=== PATIENT | female | born 1975 | race African-American/Black ===

== ENCOUNTER 2016-10-26 12:54 | Emergency (ER) | payer OTHER ==
[~2016-10-26] VITALS: Ht 152.4 cm; Wt 52.0 kg
[~2016-10-26 12:54] MED LIST: BACT800T5 PO; OMEP40CA2 PO; PROT40TA PO
[2016-10-26 12:58] VITALS: BP 125/84; PULSE 86; RESP 16; TEMP 98.4; O2SAT 98
[2016-10-26 13:18] LABS: MEAN CORPUSCULAR HGB CONC 36.3 % (32.0-36.0)
--- NOTE | 2016-10-26 13:41 | RADRPT ---
EXAM DATE/TIME: 10/26/2016 13:16 [facility] COMPARISON: CHEST SINGLE AP, November 14, 2015, 23:51. INDICATIONS : Chest pain MEDICAL HISTORY : None. SURGICAL HISTORY : None. ENCOUNTER: Initial ACUITY: 3 days PAIN SCORE: 10/10 LOCATION: Bilateral chest FINDINGS: A single view of the chest demonstrates the lungs to be symmetrically aerated without evidence of mas s, infiltrate or effusion. The cardiomediastinal contours are unremarkable. Osseous structures are intact. CONCLUSION: No acute disease. Delta Bloom MD on October 26, 2016 at 13:39 Board Certified Radiologist. This report was verified electronically.
[2016-10-26 13:51] LABS: AUTOMATED NEUTROPHIL # 5.2 TH/MM3 (1.8-7.7); BASOPHIL % 0.5 % (0.0-2.0); EOSINOPHIL # 0.1 TH/MM3 (0-0.4); EOSINOPHIL % 0.8 % (0.0-4.0); HEMATOCRIT 29.1 % (35.0-46.0); LYMPH % 34.8 % (9.0-44.0); LYMPHOCYTE # 3.1 TH/MM3 (1.0-4.8); MEAN CELL VOLUME 76.6 FL (80.0-100.0); MEAN CORPUSCULAR HEMOGLOBIN 27.8 PG (27.0-34.0); MONO % 5.5 % (0.0-8.0); NEUT % 58.4 % (16.0-70.0); PLATELET COUNT 409 TH/MM3 (150-450); RED CELL DISTRIBUTION WIDTH 17.9 % (11.6-17.2); WHITE BLOOD COUNT 8.8 TH/MM3 (4.0-11.0)
[2016-10-26 13:53] LABS: HEMO FLAGS AUTO DIFF
[2016-10-26 14:05] LABS: ANION GAP 8 MEQ/L (5-15); BICARBONATE 27.5 MEQ/L (21.0-32.0); BLOOD UREA NITROGEN 5 MG/DL (7-18); CHLORIDE 104 MEQ/L (98-107); GLOMERULAR FILTRATION RATE 98 ML/MIN (>89); SODIUM (NA) 139 MEQ/L (136-145)
[2016-10-26 14:12] LABS: CREATINE KINASE 58 U/L (26-192)
[2016-10-26 14:26] LABS: SCAN/DIFF AUTO DIFF CONFIRMED; TARGET CELLS 1+ (NORMAL)
[2016-10-26] MEDS ORDERED: KETOROLAC TROMETHAMINE 60 MG/2 ML (IM) VIAL IM ONE (16:45)
[2016-10-26] MEDS ORDERED: ORPHENADRINE INJ 60 MG/2 ML AMP IM ONE (16:45)
--- NOTE | 2016-10-26 17:16 | PD ---
HPI Chief Complaint: Chest Pain Time Seen by Provider: 17:16 Travel History International Travel<30 days: No Contact w/Intl Traveler<30days: No Traveled to known affect area: No History of Present Illness HPI 41-year-old female presents to the emergency department for evaluation of her right sided neck pain, exacerbated with movement, for the last 3 days. States she has also had a left substernal chest pain for 3 days. Patient states it does not radiate anywhere. She has had no nausea or vomiting. No recent illnesses, fever, chills. No cardiac history. She has no other symptoms to report at this time. [facility] Past Medical History Medical History: Denies Significant Hx Diminished Hearing: No GERD: Yes Immunizations Current: Yes Pancreatitis: Yes Ulcer: Yes (DUODENAL) : 2 Para: 2 Tubal Ligation: Yes Past Surgical History Cholecystectomy: Yes Gynecologic Surgery: Yes (TUBAL) Other Surgery: Yes (ORAL SX.) Social History Alcohol Use: Yes (OCC.) Tobacco Use: Yes (1/2 PPD) Substance Use: Yes (marijuana) Allergies-Medications (Allergen,Severity, Reaction): Coded Allergies: No Known Allergies (Unverified , 10/19/16) Reported Meds & Prescriptions Reported Meds & Active Scripts Active Robaxin (Methocarbamol) 500 Mg Tab 500 Mg PO QID PRN Ibuprofen 600 Mg Tab 600 Mg PO Q8HR PRN Bactrim DS (Sulfamethoxazole-Trimethoprim) 800-160 Mg Tab 1 Tab PO BID 5 Days Reported Protonix (Pantoprazole Sodium) 40 Mg Tab 40 Mg PO DAILY Omeprazole 40 Mg Cap 40 Mg PO DAILY Review of Systems Except as stated in HPI: all other systems reviewed are Neg Physical Exam Narrative GENERAL: Well-nourished female patient, ambulatory no acute distress SKIN: Warm and dry. HEAD: Atraumatic. Normocephalic. EYES: Pupils equal and round. No scleral icterus. No injection or drainage. ENT: No nasal bleeding or discharge. Mucous membranes pink and moist. NECK: Trachea midline. No JVD. Tenderness elicited palpation along the right trapezius musculature. CARDIOVASCULAR: Regular rate and rhythm. No murmur appreciated. RESPIRATORY: No accessory muscle use. Clear to auscultation. Breath sounds equal bilaterally. GASTROINTESTINAL: Abdomen soft, non-tender, nondistended. Hepatic and splenic margins not palpable. MUSCULOSKELETAL: No obvious deformities. No clubbing. No cyanosis. No edema. NEUROLOGICAL: Awake and alert. No obvious cranial nerve deficits. Motor grossly within normal limits. Normal speech. PSYCHIATRIC: Appropriate mood and affect; insight and judgment normal. Data Data Last Documented VS Vital Signs Date Time Temp Pulse Resp B/P Pulse Ox O2 Delivery O2 Flow Rate FiO2 10/26/16 12:58 98.4 86 16 125/84 98 Orders Electrocardiogram (10/26/16 13:16) Complete Blood Count With Diff (10/26/16 13:16) Basic Metabolic Panel (Bmp) (10/26/16 13:16) Ckmb (Isoenzyme) Profile (10/26/16 13:16) Troponin I (10/26/16 13:16) Chest, Single Ap (10/26/16 13:16) Iv Access Insert/Monitor (10/26/16 13:16) Ecg Monitoring (10/26/16 13:16) Oxygen Administration (10/26/16 13:16) Oximetry (10/26/16 13:16) Electrocardiogram (10/26/16 ) Troponin I (10/26/16 16:35) Ketorolac Inj (Toradol Inj) (10/26/16 16:45) Orphenadrine Inj (Norflex Inj) (10/26/16 16:45) Potassium Chloride (Kcl) (10/26/16 17:30) Labs Laboratory Tests Test 10/26/16 10/26/16 13:35 16:50 White Blood Count 8.8 TH/MM3 Red Blood Count 3.80 MIL/MM3 Hemoglobin 10.6 GM/DL Hematocrit 29.1 % Mean Corpuscular Volume 76.6 FL Mean Corpuscular Hemoglobin 27.8 PG Mean Corpuscular Hemoglobin 36.3 % Concent Red Cell Distribution Width 17.9 % Platelet Count 409 TH/MM3 Mean Platelet Volume 7.4 FL Neutrophils (%) (Auto) 58.4 % Lymphocytes (%) (Auto) 34.8 % Monocytes (%) (Auto) 5.5 % Eosinophils (%) (Auto) 0.8 % Basophils (%) (Auto) 0.5 % Neutrophils # (Auto) 5.2 TH/MM3 Lymphocytes # (Auto) 3.1 TH/MM3 Monocytes # (Auto) 0.5 TH/MM3 Eosinophils # (Auto) 0.1 TH/MM3 Basophils # (Auto) 0.0 TH/MM3 CBC Comment AUTO DIFF Differential Comment AUTO DIFF CONFIRMED Target Cells 1+ Sodium Level 139 MEQ/L Potassium Level 3.0 MEQ/L Chloride Level 104 MEQ/L Carbon Dioxide Level 27.5 MEQ/L Anion Gap 8 MEQ/L Blood Urea Nitrogen 5 MG/DL Creatinine 0.79 MG/DL Estimat Glomerular Filtration 98 ML/MIN Rate Random Glucose 86 MG/DL Calcium Level 9.0 MG/DL Total Creatine Kinase 58 U/L Troponin I LESS THAN 0.02 LESS THAN 0.02 NG/ML NG/ML MDM Medical Decision Making Medical Screen Exam Complete: Yes Emergency Medical Condition: Yes Medical Record Reviewed: Yes Differential Diagnosis Muscle strain versus spasm versus discogenic pain Costochondritis versus chest wall pain versus less likely ACS Narrative Course 41-year-old female presents to the emergency department for evaluation. Patient appears without distress. Workup is initiated by nursing staff for protocol. Protocol labs have resulted without any acute concern. Patient is with anemia hemoglobin 10.9. EKG is without ST elevation or depression. It is normal sinus rhythm. It has been signed and reviewed by an ED physician. Troponin is less than 0.02. Patient is hypokalemic at 3.0. This is repleted in the emergency department. Repeat troponin is less than 0.02. Repeat EKG is similar to the first EKG. I have discussed the patient with Dr. Loyola who agrees the patient can be discharged at this time. She is provided additional pain control and agrees to return immediately with any acute worsening of symptoms. Diagnosis Primary Impression: Strain of right trapezius muscle Qualified Code: S46.811A - Strain of right trapezius muscle, initial encounter Additional Impression: Chest wall pain Referrals: Primary Care Physician Patient Instructions: General Instructions, Muscle Strain (ED) Departure Forms: Tests/Procedures, Work Release Enter return to work date: Oct 30, 2016 Additional Instructions: Ice and/or warm moist heat may help to alleviate symptoms Follow-up the primary care provider Return immediately to the emergency department with any acute worsening of symptoms Med/Other Pt SpecificInfo: Prescription(s) given Scripts Methocarbamol (Robaxin)500 Mg [id number] Mg PO QID PRN (MUSCLE SPASM) #30 TAB Ref 0 Prov:Betsy Dorsey 10/26/16 Ibuprofen 600 Mg Flu448 Mg PO Q8HR PRN (PAIN) #30 TAB Ref 0 Prov:Betsy Dorsey 10/26/16 Disposition: 01 DISCHARGE HOME Condition: Stable Betsy Dorsey Oct 26, 2016 17:16
[2016-10-26] MEDS ORDERED: POTASSIUM CHLORIDE 10 MEQ CONTROLLED RELEASE TAB PO ONE (17:30)
[2016-10-26] MEDS ORDERED: ROBA500T PO (17:56)
[2016-10-26] MEDS ORDERED: IBUP-232 PO (17:56)
--- NOTE | 2016-10-27 16:58 | EKG ---
Date Performed: 10/26/2016 Time Performed: 13:30:18 PTAGE: 41 years EKG: Sinus rhythm WITH SHORT MI INTERVAL NORMAL ECG PREVIOUS TRACING : 11/15/2015 01.21 Compared to previous tracing, the long QST interval has res olved DOCTOR: Patricia Cheung Interpretating Date/Time 10/27/2016 16:58:28
--- NOTE | 2016-10-27 17:01 | EKG ---
Date Performed: 10/26/2016 Time Performed: 17:27:46 PTAGE: 41 years EKG: NORMAL Sinus rhythm WITH SHORT NH INTERVAL NONSPECIFIC ST-T-WAVE CHANGES BORDERLINE ECG PREVIOUS TRACING : 10/26/2016 13.30 Since previous tracing, no significant change noted DOCTOR: Patricia Cheung Interpretating Date/Time 10/27/2016 16:59:02
== END 2016-10-26 18:19 | disposition home or self-care (01) ==
LOC: NETRI 12:54
DX: S46.811A Strain of other muscles, fascia and tendons at shoulder and upper arm level, right arm, initial encounter (principal); R07.89 Other chest pain; F17.210 Nicotine dependence, cigarettes, uncomplicated; R94.31 Abnormal electrocardiogram [ECG] [EKG]
CPT/HCPCS: 71010; 80048; 82550; 84484; 85025; 93005; 96372; 99285; J1885; J2360

== ENCOUNTER 2018-01-06 18:21 | Observation (INO) | payer OTHER ==
[~2018-01-06] VITALS: Ht 154.9 cm; Wt 52.0 kg
[~2018-01-06 18:21] MED LIST changes: +IBUP-232 PO; +ROBA500T PO
[2018-01-06 18:46] VITALS: BP 120/74; PULSE 91; RESP 18; TEMP 98.7; O2SAT 99
[2018-01-06] MEDS ORDERED: SODIUM CHLOR 0.9% 1000 ML INJ 1,000 ML IV ONE (19:45)
[2018-01-06] MEDS ORDERED: ONDANSETRON HCL 4 MG/2 ML VIAL IV ONE (19:45)
[2018-01-06 19:55] VITALS: BP 128/81; PULSE 77; RESP 15; O2SAT 98
--- NOTE | 2018-01-06 19:55 | PD ---
HPI Chief Complaint: GI Complaint Time Seen by Provider: 19:31 Travel History International Travel<30 days: No Contact w/Intl Traveler<30days: No Traveled to known affect area: No History of Present Illness HPI The patient is a 42 year old female who presents to the [facility] emergency department with a history of developing nausea and vomiting around 2 AM yesterday. She reports that in the evening the vomiting resolved, however she continues to be nauseated. She reports that she has had diarrhea, however she is on her menstrual cycle and that is not unusual for her. She reports that she had 3-4 episodes of diarrhea yesterday, 2-3 episodes of diarrhea today. She denies having any blood in her stool or black or tarry stools. She denies having any mucus in her stool. She denies having any urinary symptoms. She reports that her last menstrual cycle began on January 02. She denies having any fevers or chills. She reports that she does have some left chest wall pain. She reports that in the upper chest near the axilla on the left side she developed an abscess that drained. She reports that she used [id number] ointment on it and warm compresses which allowed it to drain and then resolved. She reports that she continues to have some tenderness at the site, however no increased swelling or drainage. She denies having any recent worsening cough or congestion. On review of systems otherwise, she denies having any lumps in her axilla, breast nodules, nipple discharge, neck pain, shortness of breath, abdominal pain, or neurologic symptoms. The patient reports that she does have a family history of breast cancer in her mother. She denies ever having a mammogram. Her primary care physician is Dr. Pak. The patient reports that she had vomiting too many times to count. The patient reports that she last had a sip of alcohol on . She reports that she drank 1 glass of wine. [facility] Past Medical History Narrative Medical The patient's past medical history is reportedly significant for peptic ulcer disease, history of pancreatitis thought to be related to her gallbladder which has been resected. Diminished Hearing: No GERD: Yes Immunizations Current: Yes Pancreatitis: Yes Ulcer: Yes (DUODENAL) ?: Not : 2 Para: 2 Tubal Ligation: Yes Past Surgical History Narrative Surgical The patient's past surgical history is significant for cholecystectomy, bilateral tubal ligation, cleft palate repair Cholecystectomy: Yes Gynecologic Surgery: Yes (TUBAL) Other Surgery: Yes (ORAL SX.) Social History Alcohol Use: Yes (OCC.) Tobacco Use: Yes (/2 PPD) Substance Use: Yes (marijuana) Allergies-Medications (Allergen,Severity, Reaction): Coded Allergies: No Known Allergies (Unverified Allergy, Unknown, 01/06/18) Reported Meds & Prescriptions Reported Meds & Active Scripts Active Robaxin (Methocarbamol) 500 Mg Tab 500 Mg PO QID PRN Ibuprofen 600 Mg Tab 600 Mg PO Q8HR PRN Bactrim DS (Sulfamethoxazole-Trimethoprim) 800-160 Mg Tab 1 Tab PO BID 5 Days Reported Protonix (Pantoprazole Sodium) 40 Mg Tab 40 Mg PO DAILY Omeprazole 40 Mg Cap 40 Mg PO DAILY Narrative Medication The patient reports that the only medication that she is currently on is omeprazole. Review of Systems Except as stated in HPI: all other systems reviewed are Neg General / Constitutional: No: Fever Eyes: No: Visual changes HENT: No: Headaches, Congestion Cardiovascular: Positive: Chest Pain or Discomfort (Left upper chest near her axilla) Respiratory: No: Cough, Shortness of Breath Gastrointestinal: Positive: Nausea, Vomiting, Diarrhea, Abdominal Pain, Changes in Bowel Habits, Indigestion, No: Hematemesis, Hematochezia, Constipation, Loss of Appetite Genitourinary: No: Dysuria Musculoskeletal: No: Pain Skin: No Rash Neurologic: No: Weakness, Focal Abnormalities, Change in Mentation, Slurred Speech, Sensory Disturbance Psychiatric: No: Depression Endocrine: No: Polydipsia Hematologic/Lymphatic: No: Easy Bruising Physical Exam Narrative General: The patient is a well-developed well-nourished female in no acute distress. Head and Neck exam: Head is normocephalic atraumatic. Eyes: EOMI, pupils are equal round and reactive to light. Nose: Midline septum with pink mucous membranes Mouth: Dentition unremarkable. Moist mucus membranes. Posterior oropharynx is not erythematous. No tonsillar hypertrophy. Uvula midline. Airway patent. Neck: No palpable lymphadenopathy. No nuchal rigidity. No thyromegaly. Cardiovascular: Regular rate and rhythm without murmurs, gallops, or rubs. No pulse deficit to the extremities on simultaneous auscultation and palpation of her radial artery. Breast exam: No breast nodules or masses are palpated. The patient has no axillary lymphadenopathy. No skin changes noted, except in the area of interest , the left side of her chest wall above the breast near the axilla. There is a linear area of scar which she reports is slightly tender to palpation. There is no underlying fluctuance, erythema, or warmth on palpation. Lungs: Clear to auscultation bilaterally. No wheezes, rhonchi, or rales. Abdomen: Soft, without tenderness to palpation in all 4 quadrants of the abdomen, however some discomfort on palpation of the midepigastric area. No guarding, rebound, or rigidity. Normal bowel sounds are audible. No tenderness on palpation of McBurney's point. Negative Adam sign Extremities: No clubbing, cyanosis, or edema. 2+ pulses in all 4 extremities. No calf tenderness on palpation. Back: No costovertebral angle tenderness to palpation. Neurologic Exam: Grossly nonfocal. Skin Exam: No rash noted. Intact skin that is warm and dry. Data Data Last Documented VS Vital Signs Date Time Temp Pulse Resp B/P (MAP) Pulse Ox O2 Delivery O2 Flow Rate FiO2 01/06/18 19:55 77 15 128/81 (97) 98 01/06/18 18:46 98.7 Orders Orders Complete Blood Count With Diff (01/06/18 19:36) Comprehensive Metabolic Panel (01/06/18 19:36) Prothrombin Time / Inr (Pt) (01/06/18 19:36) Act Partial Throm Time (Ptt) (01/06/18 19:36) C-Reactive Protein (Crp) (01/06/18 19:36) Lipase (01/06/18 19:36) Urinalysis - C+S If Indicated (01/06/18 19:36) Magnesium (Mg) (01/06/18 19:36) Chest, Single Ap (01/06/18 19:36) Iv Access Insert/Monitor (01/06/18 19:36) Ecg Monitoring (01/06/18 19:36) Oximetry (01/06/18 19:36) Ed Urine Pregnancytest Poc (01/06/18 19:36) Ondansetron Inj (Zofran Inj) (01/06/18 19:45) Sodium Chlor 0.9% 1000 Ml Inj (Ns 1000 M (01/06/18 19:45) Admit Order (Ed Use Only) (01/06/18 20:48) Labs Laboratory Tests Test 01/06/18 20:00 White Blood Count 6.2 TH/MM3 Red Blood Count 4.30 MIL/MM3 Hemoglobin 12.4 GM/DL Hematocrit 34.3 % Mean Corpuscular Volume 79.6 FL Mean Corpuscular Hemoglobin 28.9 PG Mean Corpuscular Hemoglobin Concent 36.2 % Red Cell Distribution Width 16.2 % Platelet Count 235 TH/MM3 Mean Platelet Volume 7.0 FL Neutrophils (%) (Auto) 55.3 % Lymphocytes (%) (Auto) 37.6 % Monocytes (%) (Auto) 5.1 % Eosinophils (%) (Auto) 1.4 % Basophils (%) (Auto) 0.6 % Neutrophils # (Auto) 3.4 TH/MM3 Lymphocytes # (Auto) 2.3 TH/MM3 Monocytes # (Auto) 0.3 TH/MM3 Eosinophils # (Auto) 0.1 TH/MM3 Basophils # (Auto) 0.0 TH/MM3 CBC Comment DIFF FINAL Differential Comment Prothrombin Time 11.0 SEC Prothromb Time International Ratio 1.1 RATIO Activated Partial Thromboplast Time 23.8 SEC Blood Urea Nitrogen 5 MG/DL Creatinine 0.69 MG/DL Random Glucose 78 MG/DL Total Protein 7.9 GM/DL Albumin 3.7 GM/DL Calcium Level 8.7 MG/DL Magnesium Level 2.1 MG/DL Alkaline Phosphatase 83 U/L Aspartate Amino Transf (AST/SGOT) 9 U/L Alanine Aminotransferase (ALT/SGPT) 13 U/L Total Bilirubin 0.8 MG/DL Sodium Level 139 MEQ/L Potassium Level 3.4 MEQ/L Chloride Level 104 MEQ/L Carbon Dioxide Level 27.9 MEQ/L Anion Gap 7 MEQ/L Estimat Glomerular Filtration Rate 114 ML/MIN C-Reactive Protein LESS THAN 0.29 MG/DL Lipase 686 U/L MDM Medical Decision Making Medical Screen Exam Complete: Yes Emergency Medical Condition: Yes Medical Record Reviewed: Yes Interpretation(s) Last Impressions Chest X-Ray 01/06/18 193 Signed Impressions: Service Date/Time: Saturday, January 06, 2018 19:47 - CONCLUSION: No acute disease. Ab Kimble MD Differential Diagnosis Viral syndrome, versus pancreatitis, versus acid reflux, versus gastroenteritis Regarding the patient's chest wall symptoms, the patient is noted to have a linear area of tenderness on palpation that she reports was previously noted to be an abscess that drained 2 months ago. Differential diagnosis for this includes breast cancer, versus scar tissue formation with keloid, versus soft tissue infection Narrative Course During the course of the patient's emergency department visit, the patient's history, examination, and differential diagnosis were reviewed with the patient. The patient was placed on a personnel monitor with oximetry and frequent blood pressure monitoring. The patient had IV access obtained and blood work sent for analysis. The patient was initially provided normal saline 1 L IV fluid bolus, Zofran 4 mg IV. The patient's laboratory studies were reviewed and remarkable for a white count of 6.2, hemoglobin 12.4, platelets 235 with a normal differential. A lipase that is elevated compared to previously at 686. Urine drug screen that is positive for cannabinoids. Radiology studies were reviewed and remarkable for a CXR that shows no acute abnormality. The patient will be admitted to the hospital for evaluation of an treatment of pancreatitis. The patient's results were discussed with the patient, including the plan of care. I explained that further testing and/ or monitoring is indicated based on the patient's history, examination, and/ or laboratory findings. Therefore, I recommended admission for additional evaluation. The patient expressed understanding and was agreeable with this plan. The patient was admitted to the hospital in stable condition and sent to a bed under the care of the [facility] residents. Physician Communication Physician Communication The patient's case including history, pertinent physical examination findings, and laboratory studies were discussed with the residents. it was agreed that the patient would be admitted to the [facility] teaching service. Diagnosis Primary Impression: Pancreatitis Qualified Codes: K85.90 - Acute pancreatitis without necrosis or infection, unspecified Admitting Information Admitting Physician Requests: Observation Referrals: Celsa Pak MD 2 days Additional Instructions: Follow-up with her primary care physician for consideration of a mammogram and ultrasound of the breast regarding the chest wall abnormality examined today given your family history of breast cancer, additional testing is warranted. Disposition: 01 DISCHARGE HOME Condition: Stable Stacy Claire MD Jan 06, 2018 19:55
[2018-01-06 20:10] LABS: AUTOMATED NEUTROPHIL # 3.4 TH/MM3 (1.8-7.7); BASOPHIL % 0.6 % (0.0-2.0); EOSINOPHIL # 0.1 TH/MM3 (0-0.4); EOSINOPHIL % 1.4 % (0.0-4.0); HEMATOCRIT 34.3 % (35.0-46.0); HEMOGLOBIN 12.4 GM/DL (11.6-15.3); LYMPH % 37.6 % (9.0-44.0); LYMPHOCYTE # 2.3 TH/MM3 (1.0-4.8); MEAN CELL VOLUME 79.6 FL (80.0-100.0); MEAN CORPUSCULAR HEMOGLOBIN 28.9 PG (27.0-34.0); MONO % 5.1 % (0.0-8.0); MONOCYTE # 0.3 TH/MM3 (0-0.9); NEUT % 55.3 % (16.0-70.0); PLATELET COUNT 235 TH/MM3 (150-450); RED CELL DISTRIBUTION WIDTH 16.2 % (11.6-17.2); WHITE BLOOD COUNT 6.2 TH/MM3 (4.0-11.0)
[2018-01-06 20:13] LABS: MEAN CORPUSCULAR HGB CONC 36.2 % (32.0-36.0)
--- NOTE | 2018-01-06 20:16 | RADRPT ---
EXAM DATE/TIME: 01/06/2018 19:47 [facility] COMPARISON: CHEST SINGLE AP, October 26, 2016, 13:16. INDICATIONS : Nausea and vomiting today and history of a boil several months ago on left anterior chest. MEDICAL HISTORY : None. SURGICAL HISTORY : None. ENCOUNTER: Initial ACUITY: 1 day PAIN SCORE: 0/10 LOCATION: Bilateral chest FINDINGS: A single view of the chest demonstrates the lungs to be symmetrically aerated without evidence of mas s, infiltrate or effusion. The cardiomediastinal contours are unremarkable. Osseous structures are intact. CONCLUSION: No acute disease. Ab Kimble MD on January 06, 2018 at 20:13 Board Certified Radiologist. This report was verified electronically.
[2018-01-06 20:22] LABS: ALBUMIN 3.7 GM/DL (3.4-5.0); ALT (GPT) 13 U/L (10-53); AST (GOT) 9 U/L (15-37); BICARBONATE 27.9 MEQ/L (21.0-32.0); BLOOD UREA NITROGEN 5 MG/DL (7-18); CALCIUM 8.7 MG/DL (8.5-10.1); CHLORIDE 104 MEQ/L (98-107); CREATININE 0.69 MG/DL (0.50-1.00); GLOMERULAR FILTRATION RATE 114 ML/MIN (>89); GLUCOSE,RANDOM 78 MG/DL (74-106); INTERNATIONAL NORMALIZED RATIO 1.1 RATIO; MAGNESIUM 2.1 MG/DL (1.5-2.5); SODIUM (NA) 139 MEQ/L (136-145)
[2018-01-06 20:24] LABS: ALKALINE PHOSPHATASE 83 U/L (45-117); C-REACTIVE PROTEIN LESS THAN 0.29 MG/DL (0.00-0.30); TOTAL BILIRUBIN ADULT 0.8 MG/DL (0.2-1.0); TOTAL PROTEIN 7.9 GM/DL (6.4-8.2)
--- NOTE | 2018-01-06 20:52 | HHI.HP ---
HPI Service Family Medicine Primary Care Physician Unknown Admission Diagnosis Pancreatitis Diagnoses: International Travel<30 Days: No Contact w/Intl Traveler<30days: No Known Affected Area: No History of Present Illness Patient is a 42-year-old Female with PMHx of duodenal ulcer disease presents to the ED with complains of nausea, vomiting and epigastric abdominal pain that started around 2am yesterday (01/05). Patient states that she vomited 5-6 times, emesis was yellow in color, NBNB. Epigastric abdominal pain is burning in nature with no radiation, rates 6/10 and stable. She stated the pain is similar to when she had her duodenal ulcer. Patient also reports having diarrhea 2-3 times yesterday morning, now resolved. Denies fever, SOB, chills, or CP. Patient denies taking any NSAIDs or pain medication for the abdominal pain. Vomiting and diarrhea has resolved. She has been able to tolerate liquids, gatorade and sprite but has not been able to eat much solid food. Patient reports good urine output, denies dysuria or increased frequency. Patient is on her menstrual cycle started 01/02, she also usually gets nausea with her cycle. Denies cramps. (Tracie Rodriguez MD, R1) Review of Systems Constitutional: COMPLAINS OF: Change in appetite, DENIES: Fever, Weight loss, Chills, Dizziness Eyes: DENIES: Eye pain, Vision loss Ears, nose, mouth, throat: COMPLAINS OF: Running Nose (chronic), DENIES: Throat pain Respiratory: DENIES: Cough, Wheezing, Shortness of breath Cardiovascular: DENIES: Chest pain, Palpitations, Syncope, Lower Extremity Edema Gastrointestinal: COMPLAINS OF: Abdominal pain, Diarrhea, Nausea, Vomiting, DENIES: Bloody stools Genitourinary: DENIES: Urinary frequency, Dysuria Musculoskeletal: COMPLAINS OF: Joint pain (chronic), Back pain (chronic), DENIES: Neck pain Integumentary: DENIES: Rash Hematologic/lymphatic: DENIES: Bruising Neurologic: COMPLAINS OF: Paresthesias, DENIES: Headache, Localized weakness ( chonic) Psychiatric: DENIES: Confusion (Tracie Rodriguez MD, R1) Past Family Social History Past Medical History duodenal ulcer, takes omeprazole daily Past Surgical History tubal ligation, 2000 Cholecystectomy, 2009 cleft palate repair, at age 3 Reported Medications Omeprazole 40 Mg Cap 40 Mg PO DAILY (Tracie Rodriguez MD, R1) Past Medical History Pancreatitis -- patient with h/o gallbladder polyps and recurrent pancreatitis thought to be secondary to this -- she has had no episodes of pancreatitis since her gallbladder was removed. (Veronika Sparks MD) Allergies: Coded Allergies: No Known Allergies (Unverified Allergy, Unknown, 01/06/18) Family History mother- CA breast grandmother- DM, CAD ulcer and GI issues run in family Social History lives with son in a apartment smokes- half pack a day for 25 yrs alcohol use- rarely Illicit drug: MJ every daily 5 blunts (Tracie Rodriguez MD, R1) Physical Exam Vital Signs Vital Signs Date Time Temp Pulse Resp B/P (MAP) Pulse Ox O2 Delivery O2 Flow Rate FiO2 01/06/18 19:55 77 15 128/81 (97) 98 01/06/18 19:38 16 01/06/18 18:46 98.7 91 18 120/74 (89) 99 Physical Exam GENERAL: This is a well-nourished, well-developed patient, in no apparent distress. SKIN: No rashes, ecchymoses or lesions. Cool and dry. HEAD: Atraumatic. Normocephalic. EYES: Pupils equal round and reactive. Extraocular motions intact. No scleral icterus. No injection or drainage. ENT: Nose without bleeding, purulent drainage or septal hematoma. Throat without erythema, tonsillar hypertrophy or exudate. Uvula midline. Airway patent. NECK: Trachea midline. No JVD or lymphadenopathy. Supple, nontender, no meningeal signs. CARDIOVASCULAR: Normal S1 and S2. Regular rate and rhythm without murmurs, gallops, or rubs. RESPIRATORY: Clear to auscultation. Breath sounds equal bilaterally. No wheezes , rales, or rhonchi. GASTROINTESTINAL: Abdomen soft, nondistended, mild tenderness to palpation in epigastric region, No hepato-splenomegaly, or palpable masses. No guarding. MUSCULOSKELETAL: Extremities without clubbing, cyanosis, or edema. No joint tenderness, effusion, or edema noted. No calf tenderness. +2 DP pulses BL. NEUROLOGICAL: Awake and alert. Cranial nerves II through XII intact. Motor and sensory grossly within normal limits. Five out of 5 muscle strength in all muscle groups. Normal speech. Laboratory Laboratory Tests Test 01/06/18 20:00 White Blood Count 6.2 Red Blood Count 4.30 Hemoglobin 12.4 Hematocrit 34.3 Mean Corpuscular Volume 79.6 Mean Corpuscular Hemoglobin 28.9 Mean Corpuscular Hemoglobin Concent 36.2 Red Cell Distribution Width 16.2 Platelet Count 235 Mean Platelet Volume 7.0 Neutrophils (%) (Auto) 55.3 Lymphocytes (%) (Auto) 37.6 Monocytes (%) (Auto) 5.1 Eosinophils (%) (Auto) 1.4 Basophils (%) (Auto) 0.6 Neutrophils # (Auto) 3.4 Lymphocytes # (Auto) 2.3 Monocytes # (Auto) 0.3 Eosinophils # (Auto) 0.1 Basophils # (Auto) 0.0 CBC Comment DIFF FINAL Differential Comment Prothrombin Time 11.0 Prothromb Time International Ratio 1.1 Activated Partial Thromboplast Time 23.8 Blood Urea Nitrogen 5 Creatinine 0.69 Random Glucose 78 Total Protein 7.9 Albumin 3.7 Calcium Level 8.7 Magnesium Level 2.1 Alkaline Phosphatase 83 Aspartate Amino Transf (AST/SGOT) 9 Alanine Aminotransferase (ALT/SGPT) 13 Total Bilirubin 0.8 Sodium Level 139 Potassium Level 3.4 Chloride Level 104 Carbon Dioxide Level 27.9 Anion Gap 7 Estimat Glomerular Filtration Rate 114 C-Reactive Protein LESS THAN 0.29 Lipase 686 (Tracie Rodriguez MD, R1) Result Diagram: 01/06/18199901/06/181999 Caprini VTE Risk Assessment Caprini VTE Risk Assessment: No/Low Risk (score <= 1) Caprini Risk Assessment Model Point Value = 1 Point Value = 2 Point Value = 3 Point Value = 5 Age 41-60 Minor surgery BMI > 25 kg/m2 Swollen legs Varicose veins or History of unexplained or recurrent spontaneous Oral contraceptives or hormone replacement Sepsis (< 1 month) Serious lung disease, including pneumonia (< 1 month) Abnormal pulmonary function Acute myocardial infarction Congestive heart failure (< 1 month) History of inflammatory bowel disease Medical patient at bed rest Age 61-74 Arthroscopic surgery Major open surgery (> 45 min) Laparoscopic surgery (> 45 min) Malignancy Confined to bed (> 72 hours) Immobilizing plaster cast Central venous access Age >= 75 History of VTE Family history of VTE Factor V Leiden Prothrombin [id number] Lupus anticoagulant Anticardiolipin antibodies Elevated serum homocysteine Heparin-induced thrombocytopenia Other congenital or acquired thrombophilia Stroke (< 1 month) Elective arthroplasty Hip, pelvis, or leg fracture Acute spinal cord injury (< 1 month) Prophylaxis Regimen Total Risk Factor Score Risk Level Prophylaxis Regimen 0-1 Low Early ambulation 2 Moderate Order ONE of the following: *Sequential Compression Device (SCD) *Heparin 5000 units SQ BID 3-4 Higher Order ONE of the following medications: *Heparin 5000 units SQ TID *Enoxaparin/Lovenox 40 mg SQ daily (WT < 150 kg, CrCl > 30 mL/min) *Enoxaparin/Lovenox 30 mg SQ daily (WT < 150 kg, CrCl > 10-29 mL/min) *Enoxaparin/Lovenox 30 mg SQ BID (WT < 150 kg, CrCl > 30 mL/min) AND/OR *Sequential Compression Device (SCD) 5 or more Highest Order ONE of the following medications: *Heparin 5000 units SQ TID (Preferred with Epidurals) *Enoxaparin/Lovenox 40 mg SQ daily (WT < 150 kg, CrCl > 30 mL/min) *Enoxaparin/Lovenox 30 mg SQ daily (WT < 150 kg, CrCl > 10-29 mL/min) *Enoxaparin/Lovenox 30 mg SQ BID (WT < 150 kg, CrCl > 30 mL/min) AND *Sequential Compression Device (SCD) (Tracie Rodriguez MD, R1) Assessment and Plan Assessment and Plan Patient is a 42-year-old Female with PMHx of duodenal ulcer disease presents to the ED with complains of nausea, vomiting and epigastric abdominal pain that started around 2am yesterday. Admitted for observation and hydration. Code Status full code Discussed Condition With SDW Dr. Manjarrez (Tracie Rodriguez MD, R1) Attending Attestation THIS CASE WAS DISCUSSED WITH THE RESIDENT PHYSICIAN. I HAVE REVIEWED THE RECORD AND AGREE WITH THE ABOVE NOTE AND PLAN OF CARE WAS DISCUSSED. I HAVE AUTHORIZED THE ORDER FOR PLACEMENT IN OUT-PATIENT OBSERVATION STATUS. (Veronika Sparks MD) Problem List: (1) Abdominal pain ICD Codes: R10.9 - Abdominal pain Status: Acute Plan: DDX: recurrent duodenum/peptic ulcer disease vs early pancreatitis vs GERD Vital signs stable, no leukocytosis mild tenderness in epigastric region H/H stable, mild hypokalemia at 3.4 otherwise electrolytes WNL lipase 686 IVF 100 mls/hr protonix 40mg IV Q24h tylenol for pain norco 5mg Q6h PRN for breakthrough pain zofran for N/V diet: clear liquid diet, advance as tolerated monitor po intake GI referral as outpatient f/u am labs, UA, repeat lipase, H. pylori stool study (2) Duodenal ulcer disease ICD Codes: K26.9 - Duodenal ulcer, unspecified as acute or chronic, without hemorrhage or perforation Status: Chronic Plan: Patient dx with duodenal ulcer disease 3 yrs ago home omeprazole held c/w Protonix 40mg IV QD (3) Nutrition, metabolism, and development symptoms ICD Codes: R63.8 - Other symptoms and signs concerning food and fluid intake Plan: Fluids: 100 mls/hr Electrolytes: mild hyposalemia, s/p 30mEq x1, , replete as needed, will f/u am labs Nutrition: clear liquid diet, advance as tolerated DVT ppx: SCDs (Tracie Rodriguez MD, R1) Tracie Rodriguez MD, R1 Jan 06, 2018 20:52 Veronika Sparks MD Jan 07, 2018 15:16
[2018-01-06] MEDS ORDERED: POTASSIUM CHLORIDE 10 MEQ CONTROLLED RELEASE TAB PO ONE (21:30)
[2018-01-06] MEDS ORDERED: SODIUM CHLORIDE 0.9% FLUSH 10 ML FLUSH IV FLUSH PRN (21:30)
[2018-01-06] MEDS ORDERED: ACETAMINOPHEN 325 MG TAB PO PRN (21:30)
[2018-01-06] MEDS ORDERED: PANTOPRAZOLE SODIUM 40 MG VIAL IV PUSH SCH (21:30)
[2018-01-06] MEDS ORDERED: NALOXONE HCL 0.4 MG/ML AMP IV PUSH PRN (21:30)
[2018-01-06] MEDS: SODIUM CHLOR 0.9% 1000 ML INJ 1,000 ML IV SCH (21:47)
[2018-01-07] MEDS: ACETAMINOPHEN/HYDROcodone 325 MG/5 MG TAB PO PRN ×2 (00:29→06:18)
[2018-01-07 06:39] LABS: BILIRUBIN, URINE NEG (NEG); BLOOD, URINE MOD (NEG); CALCIUM OXALATE CRYSTALS,URINE FEW /hpf; GLUCOSE,URINE NEG (NEG); KETONE, URINE NEG (NEG); MUCUS URINE FEW /lpf (OCC); NITRITE,URINE NEG (NEG); SQUAMOUS EPITHELIAL CELL URINE 1 /hpf (0-5); URINE COLOR YELLOW (YELLW/STRAW); URINE LEUKOCYTE ESTERASE SMALL (NEG)
[2018-01-07] MEDS: SODIUM CHLOR 0.9% 1000 ML INJ 1,000 ML IV SCH ×3 (07:24→23:16)
[2018-01-07 07:27] VITALS: BP 108/56; PULSE 55; RESP 16; TEMP 98.2; O2SAT 96
[2018-01-07] MEDS: SODIUM CHLORIDE 0.9% FLUSH 10 ML FLUSH IV FLUSH SCH ×2 (09:00→20:34)
[2018-01-07 10:49] VITALS: BP 113/63; PULSE 77; RESP 20; TEMP 98.4; O2SAT 97
[2018-01-07 11:47] LABS: AUTOMATED NEUTROPHIL # 1.9 TH/MM3 (1.8-7.7); BASOPHIL % 0.4 % (0.0-2.0); EOSINOPHIL % 1.2 % (0.0-4.0); HEMATOCRIT 28.2 % (35.0-46.0); LYMPH % 46.5 % (9.0-44.0); LYMPHOCYTE # 1.9 TH/MM3 (1.0-4.8); MEAN CELL VOLUME 80.6 FL (80.0-100.0); MEAN CORPUSCULAR HEMOGLOBIN 28.8 PG (27.0-34.0); MEAN CORPUSCULAR HGB CONC 35.7 % (32.0-36.0); MEAN PLATELET VOLUME 6.8 FL (7.0-11.0); MONO % 5.7 % (0.0-8.0); MONOCYTE # 0.2 TH/MM3 (0-0.9); NEUT % 46.2 % (16.0-70.0); PLATELET COUNT 175 TH/MM3 (150-450); RED BLOOD COUNT 3.49 MIL/MM3 (4.00-5.30); WHITE BLOOD COUNT 4.1 TH/MM3 (4.0-11.0)
[2018-01-07 12:14] LABS: BICARBONATE 25.6 MEQ/L (21.0-32.0); CALCIUM 7.5 MG/DL (8.5-10.1); CREATININE 0.59 MG/DL (0.50-1.00)
[2018-01-07] MEDS ORDERED: ACETAMINOPHEN/HYDROcodone 325 MG/7.5 MG TAB PO PRN (14:00)
--- NOTE | 2018-01-07 15:38 | HHI.FPPN ---
Addendum to progress note ADDENDUM Reason for addendum: Additonal documentation Additional information Please see the resident H&P for additional documentation of the patients history. 42 year old woman with h/o duodenal ulcer and also pancreatitis in the past with severe epigastric pain and elevated lipase. Was admitted for observation for hydration and monitoring. She reports at the visit today that her pain is not controlled, she states in the past she has required morphine for her pancreatitis pain. She has been tolerating clear liquids only at this time. She states no new concerns -- denies CP, SOB, urinary symptoms. On exam her vitals are stable, she is in NAD Vital Signs Date Time Temp Pulse Resp B/P (MAP) Pulse Ox O2 Delivery O2 Flow Rate FiO2 01/07/18 10:49 98.4 77 20 113/63 (80) 97 HEENT -- PERRL, OP clear, trachea midline, thyroid not enlarged, no cervical LAD CARDS _- rrr, no murmurs PULM - Clear bilaterally, moving air well, no crackles ABD -- S, ND, good bowel sounds, she is tender in the epigastric area, nontender in the LUQ, no rebound, no guarding EXT/MS -- MAEW, full ROM, good DP and PT pulses, no Edema in the Legs Skin - no rashes, no lesions - no suprapubic tenderness, no CVA T bilaterally 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 However -- this has resolved back to normal. Consider this may be due to other PUD. --- Continue IVF, PPI and adjust pain medications. H/H dropped since admission -- likely secondary to IVF and dilutional but with patient h/o duodenal ulcer would consider possible bleeding ulcer as well. Patient clinically not improved since yesterday so will continue to keep her for monitoring. Patient seen and dw the resident team -- Dr. Norman, Dr. Manjarrez, Dr. Arnold-Goodman Sparks,Veronika Jones MD Jan 07, 2018 15:38
[2018-01-07 15:40] VITALS: BP 124/72; PULSE 63; RESP 20; TEMP 98.3; O2SAT 98
[2018-01-07] MEDS: ONDANSETRON HCL 4 MG/2 ML VIAL IVP PRN (20:34)
[2018-01-07] MEDS ORDERED: PANTOPRAZOLE SOD 40 MG DELAYED RELEASE TAB PO SCH (21:00)
[2018-01-07 21:06] LABS: HEMATOCRIT 28.7 % (35.0-46.0); HEMOGLOBIN 10.2 GM/DL (11.6-15.3)
[2018-01-08] MEDS: ONDANSETRON HCL 4 MG/2 ML VIAL IVP PRN (01:46)
[2018-01-08] MEDS: ACETAMINOPHEN/HYDROcodone 325 MG/10 MG TAB PO PRN ×2 (02:34→10:19)
[2018-01-08 04:01] VITALS: BP 106/63; PULSE 78; RESP 18; TEMP 98.4; O2SAT 100
[2018-01-08 07:41] LABS: AUTOMATED NEUTROPHIL # 1.9 TH/MM3 (1.8-7.7); BASOPHIL % 0.3 % (0.0-2.0); EOSINOPHIL % 1.1 % (0.0-4.0); HEMATOCRIT 26.4 % (35.0-46.0); HEMOGLOBIN 9.5 GM/DL (11.6-15.3); LYMPH % 48.3 % (9.0-44.0); MEAN CELL VOLUME 80.1 FL (80.0-100.0); MEAN CORPUSCULAR HEMOGLOBIN 28.8 PG (27.0-34.0); MEAN CORPUSCULAR HGB CONC 35.9 % (32.0-36.0); MEAN PLATELET VOLUME 6.9 FL (7.0-11.0); MONO % 5.2 % (0.0-8.0); MONOCYTE # 0.2 TH/MM3 (0-0.9); NEUT % 45.1 % (16.0-70.0); PLATELET COUNT 151 TH/MM3 (150-450); RED CELL DISTRIBUTION WIDTH 16.1 % (11.6-17.2); WHITE BLOOD COUNT 4.1 TH/MM3 (4.0-11.0)
[2018-01-08 08:04] LABS: BICARBONATE 24.2 MEQ/L (21.0-32.0); CALCIUM 7.8 MG/DL (8.5-10.1); CREATININE 0.6 MG/DL (0.50-1.00)
--- NOTE | 2018-01-08 08:20 | HHI.FPPN ---
Subjective Remarks No acute issues overnight. Vitals are stable, patient remains afebrile. Her abdominal pain continues to improve. She continues to have some nausea but is tolerating fluids well. She denies any additional episodes of vomiting. She denies any diarrhea, fever, chills, chest pain or shortness of breath. She feels comfortable going home today. (Beth Manjarrez MD, R3) Objective Vitals Vital Signs Date Time Temp Pulse Resp B/P (MAP) Pulse Ox O2 Delivery O2 Flow Rate FiO2 01/08/18 04:01 98.4 78 18 106/63 (77) 100 01/07/18 15:40 98.3 63 20 124/72 (89) 98 01/07/18 10:49 98.4 77 20 113/63 (80) 97 I/O 01/07/18 01/07/18 01/07/18 01/08/18 01/08/18 01/08/18 07:00 15:00 23:00 07:00 15:00 23:00 Intake Total 2200 ml 1000 ml Output Total 0 ml Balance 2200 ml 1000 ml Intake Oral 200 ml 800 ml IV Total 2000 ml 200 ml Output Stool Total 0 ml # Voids 6 (Beth Manjarrez MD, R3) Result Diagram: 01/08/18 0632 01/08/18 0652 Imaging Last Impressions Chest X-Ray 01/06/18 1936 Signed Impressions: Service Date/Time: Saturday, January 06, 2018 19:47 - CONCLUSION: No acute disease. 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 Discharge Planning Anticipate discharge home today. (Beth Manjarrez MD, R3) Attending Attestation Patient seen and examined. Case reviewed and discussed with the resident team. Agree with plan of care as discussed with me and documented in the resident note. Patient reports pain completely resolved, tolerating her diet. No new complaints. Exam: HEENT anicteric, PERRL PULM - Clr bilateral, no wheezing CARDS -- rrr, no murmurs ABD - s, ,minimal tenderness in the epigastric area, ND, good bowel sounds EXT - no edema NEURO - alert, oriented, nl speech - Likely symptoms related to PUD -- cont PPI as outpatient, fu with GI for further workup and EGD as outpatient. FU with PCP in 1-2 weeks (Veronika Sparks MD) Problem List: (1) Duodenal ulcer disease ICD Codes: K26.9 - Duodenal ulcer, unspecified as acute or chronic, without hemorrhage or perforation Status: Chronic Plan: Improving. Pain on admission likely secondary to recurrent duodenum/ peptic ulcer disease. Patient dx with duodenal ulcer disease 3 yrs ago home omeprazole held c/w Protonix 40mg IV QD Vital signs stable, no leukocytosis no epigastric tenderness on physical exam today. electrolytes WNL lipase 686 on admission, trended down to wnl with IVF DC IVF as patient is tolerating PO protonix 40mg IV Q24h, will transition to Protonix 40mg PO daily on discharge Avoid NSAIDS tylenol for pain norco 5mg Q6h PRN for breakthrough pain zofran for N/V diet: clear liquid diet, advance as tolerated GI follow-up as outpatient (2) Nutrition, metabolism, and development symptoms ICD Codes: R63.8 - Other symptoms and signs concerning food and fluid intake Plan: Fluids: DC fluids, tolerating PO Electrolytes: wnl Nutrition: Regular diet, encourage BRAT diet and advance as tolerated DVT ppx: SCDs (Beth Manjarrez MD, R3) Beth Manjarrez MD, R3 Jan 08, 2018 08:20 Veronika Sparks MD Jan 08, 2018 15:40
[2018-01-08] MEDS ORDERED: PANT40TA3 PO (08:22)
[2018-01-08] MEDS ORDERED: ONDA4TAB7 SL (08:22)
--- NOTE | 2018-01-08 08:22 | HHI.DCPOC ---
Discharge Care Plan Diagnosis: (1) Duodenal ulcer disease Goals to Promote Your Health * To prevent worsening of your condition and complications * To maintain your health at the optimal level Directions to Meet Your Goals Take your medications as prescribed Follow your dietary instruction Follow activity as directed Keep your appointments as scheduled Take your immunizations and boosters as scheduled If your symptoms worsen call your PCP, if no PCP go to Urgent Care Center or Emergency Room Smoking is Dangerous to Your Health. Avoid second hand smoke Call the 24-hour hour crisis hotline for domestic abuse at Beth Manjarrez MD, R3 Jan 08, 2018 08:22
[2018-01-08] MEDS: SODIUM CHLORIDE 0.9% FLUSH 10 ML FLUSH IV FLUSH SCH (09:00)
[2018-01-08 09:17] VITALS: BP 118/62; PULSE 55; RESP 14; TEMP 98.6; O2SAT 98
== END 2018-01-08 14:14 | disposition home or self-care (01) ==
LOC: NEPE 18:21 → NEDA 20:49 → NEPGCP 22:35
PROVIDERS: ADMIT Family Medicine; ATTEND Family Medicine
DX: K26.9 Duodenal ulcer, unspecified as acute or chronic, without hemorrhage or perforation (principal); K85.90 Acute pancreatitis without necrosis or infection, unspecified; R11.2 Nausea with vomiting, unspecified; R19.7 Diarrhea, unspecified; K21.9 Gastro-esophageal reflux disease without esophagitis; F17.200 Nicotine dependence, unspecified, uncomplicated; F12.90 Cannabis use, unspecified, uncomplicated
CPT/HCPCS: 71045; 80048; 80053; 80307; 81001; 83690; 83735; 84703; 85014; 85018; 85025; 85610; 85730; 86140; 87086; 96361; 96374; 96375; 96376; 99285; C9113; G0378; J2405; J7030

== ENCOUNTER 2018-03-19 11:05 | Emergency (ER) | payer OTHER ==
[~2018-03-19] VITALS: Ht 154.9 cm; Wt 52.0 kg
[~2018-03-19 11:05] MED LIST changes: -BACT800T5 PO; -IBUP-232 PO; -OMEP40CA2 PO; +ONDA4TAB7 SL; +PANT40TA3 PO; -PROT40TA PO
[2018-03-19 11:24] VITALS: BP 135/72; PULSE 73; RESP 16; TEMP 98.4; O2SAT 100
--- NOTE | 2018-03-19 11:58 | PD ---
HPI Chief Complaint: Abdominal Pain Time Seen by Provider: 11:50 Travel History International Travel<30 days: No Contact w/Intl Traveler<30days: No Traveled to known affect area: No History of Present Illness HPI 43-year-old female came to the emergency room for epigastric pain that has been going on for past 3-4 days. Patient says "I hope it is not pancreatitis again" . Patient has history of pancreatitis in the past. She had a cholecystectomy done in 2009 in [place] she says. She denies drinking alcohol but patient is a smoker. She says she has been vomiting in the last vomit was 3 AM today. Vital signs were otherwise stable. Pain is nonradiating and no aggravating or relieving symptoms identified. Currently she is in pain 8 out of 10. It is a dull pain in the epigastric region. Patient says at home she is on omeprazole which usually works but she ran out of it a week ago. She took some Protonix that she had but apparently the Protonix does not work for her. [facility] Past Medical History Narrative Medical List of her past medical, surgical, social and family history is reviewed from the nursing note Asthma: No Blood Disorders: No Anxiety: No Depression: No Heart Rhythm Problems: No Cancer: No Cardiovascular Problems: No High Cholesterol: No Chemotherapy: No Chest Pain: No Congestive Heart Failure: No COPD: No Diabetes: No Diminished Hearing: No Endocrine: No GERD: Yes Genitourinary: No Immune Disorder: No Musculoskeletal: Yes (chronic back pain) Neurologic: No Psychiatric: No Reproductive: Yes (tubaligation) Respiratory: No Immunizations Current: Yes Pancreatitis: Yes Radiation Therapy: No Sleep Apnea: No Thyroid Disease: No Ulcer: Yes (DUODENAL) ?: Not LMP: 02/22/18 : 2 Para: 2 Tubal Ligation: Yes Past Surgical History Cholecystectomy: Yes Gynecologic Surgery: Yes (TUBAL) Other Surgery: Yes (ORAL SX.) Social History Alcohol Use: Yes (OCC.) Tobacco Use: Yes (1/2 PPD) Substance Use: No Allergies-Medications (Allergen,Severity, Reaction): Coded Allergies: No Known Allergies (Unverified Allergy, Unknown, 03/19/18) Comments No known drug allergies. Reported Meds & Prescriptions Reported Meds & Active Scripts Active Sucralfate Liq (Sucralfate) 1 Gram/10 Ml Ellie 1 Gm PO TID on empty stomach Omeprazole 40 Mg Cap 40 Mg PO DAILY Ondansetron Odt 4 Mg Tab 4 Mg SL Q6HR PRN Reported Omeprazole 20 Mg Tab 40 Mg PO DAILY Narrative Medication List of her home medications reviewed from the nursing note. Review of Systems Except as stated in HPI: all other systems reviewed are Neg Gastrointestinal: Positive: Nausea, Vomiting, Abdominal Pain Physical Exam Narrative GENERAL: Awake, alert, moderate distress SKIN: Focused skin assessment warm/dry. HEAD: Atraumatic. Normocephalic. EYES: Pupils equal and round. No scleral icterus. No injection or drainage. ENT: No nasal bleeding or discharge. Mucous membranes pink and moist. NECK: Trachea midline. No JVD. CARDIOVASCULAR: Regular rate and rhythm. No murmur appreciated. RESPIRATORY: No accessory muscle use. Clear to auscultation. Breath sounds equal bilaterally. GASTROINTESTINAL: Abdomen soft, non-tender, nondistended. Hepatic and splenic margins not palpable. MUSCULOSKELETAL: No obvious deformities. No clubbing. No cyanosis. No edema. NEUROLOGICAL: Awake and alert. No obvious cranial nerve deficits. Motor grossly within normal limits. Normal speech. PSYCHIATRIC: Appropriate mood and affect; insight and judgment normal. Data Data Last Documented VS Vital Signs Date Time Temp Pulse Resp B/P (MAP) Pulse Ox O2 Delivery O2 Flow Rate FiO2 03/19/18 14:17 03/19/18 12:17 87 22 100 Room Air 03/19/18 11:24 98.4 Orders Orders Complete Blood Count With Diff (03/19/18 12:02) Comprehensive Metabolic Panel (03/19/18 12:02) Lipase (03/19/18 12:02) Iv Access Insert/Monitor (03/19/18 12:02) Ecg Monitoring (03/19/18 12:02) Oximetry (03/19/18 12:02) Ondansetron Inj (Zofran Inj) (03/19/18 12:15) Sodium Chlor 0.9% 1000 Ml Inj (Ns 1000 M (03/19/18 12:02) Sodium Chloride 0.9% Flush (Ns Flush) (03/19/18 12:15) Ranitidine Liq (Zantac Liq) (03/19/18 12:15) Metoclopramide Inj (Reglan Inj) (03/19/18 12:45) Ed Discharge Order (03/19/18 13:21) Labs Laboratory Tests Test 03/19/18 12:22 White Blood Count 5.6 TH/MM3 Red Blood Count 4.38 MIL/MM3 Hemoglobin 12.5 GM/DL Hematocrit 35.6 % Mean Corpuscular Volume 81.3 FL Mean Corpuscular Hemoglobin 28.6 PG Mean Corpuscular Hemoglobin Concent 35.2 % Red Cell Distribution Width 17.1 % Platelet Count 209 TH/MM3 Mean Platelet Volume 7.3 FL Neutrophils (%) (Auto) 69.9 % Lymphocytes (%) (Auto) 24.4 % Monocytes (%) (Auto) 4.8 % Eosinophils (%) (Auto) 0.5 % Basophils (%) (Auto) 0.4 % Neutrophils # (Auto) 3.9 TH/MM3 Lymphocytes # (Auto) 1.4 TH/MM3 Monocytes # (Auto) 0.3 TH/MM3 Eosinophils # (Auto) 0.0 TH/MM3 Basophils # (Auto) 0.0 TH/MM3 CBC Comment DIFF FINAL Differential Comment Blood Urea Nitrogen 7 MG/DL Creatinine 0.62 MG/DL Random Glucose 110 MG/DL Total Protein 8.4 GM/DL Albumin 3.9 GM/DL Calcium Level 8.8 MG/DL Alkaline Phosphatase 82 U/L Aspartate Amino Transf (AST/SGOT) 14 U/L Alanine Aminotransferase (ALT/SGPT) 12 U/L Total Bilirubin 1.1 MG/DL Sodium Level 140 MEQ/L Potassium Level 4.0 MEQ/L Chloride Level 107 MEQ/L Carbon Dioxide Level 25.4 MEQ/L Anion Gap 8 MEQ/L Estimat Glomerular Filtration Rate 128 ML/MIN Lipase 232 U/L [facility] Medical Decision Making Medical Screen Exam Complete: Yes Emergency Medical Condition: Yes Medical Record Reviewed: Yes Differential Diagnosis Acute pancreatitis, acute gastritis, abdominal pain NOS Narrative Course 12:08 PM awaiting for blood test results. Patient is getting IV Zofran and IV fluid bolus as well as p.o. Zantac. 1:22 PM all the blood test results are back and within acceptable limits. I am comfortable discharging her home. She needs to see a GI specialist. Patient says she has an appointment with a GI specialist in March. Procedures EKG Prior to Arrival: No Diagnosis Primary Impression: Acute gastritis Qualified Codes: K29.00 - Acute gastritis without bleeding Additional Impression: Abdominal pain Qualified Codes: R10.13 - Epigastric pain Referrals: Primary Care Physician 2 days Additional Instructions: Take the medication as per the prescription direction. Follow-up with your primary care in next couple days. Return to the ER if condition worsens or any other new concerns. Do not eat or drink beverages that are acidic and containing citrus products like Lyme, lemon, oranges or tomatoes or strawberries. Eat mostly bland diet until symptoms subside. Follow-up with GI specialist as per your appointment. Med/Other Pt SpecificInfo: Prescription(s) given Scripts Sucralfate Liq (Sucralfate Liq) 1 Gram/10 Ml Ellie 1 GM PO TID for Duodenal ulcer, #900 ML 0 Refills on empty stomach Prov: Jose Alfredo Rodriguez MD 03/19/18 Omeprazole (Omeprazole) 40 Mg Cap 40 MG PO DAILY, #30 CAP 0 Refills Prov: Jose Alfredo Rodriguez MD 03/19/18 Disposition: 01 DISCHARGE HOME Condition: Stable Jose Alfredo Rodriguez MD March 19, 2018 11:58
[2018-03-19] MEDS ORDERED: SODIUM CHLOR 0.9% 1000 ML INJ 1,000 ML IV SCH (12:02)
[2018-03-19] MEDS ORDERED: OMEP20TA93 PO (12:12)
[2018-03-19] MEDS ORDERED: SODIUM CHLORIDE 0.9% FLUSH 10 ML FLUSH IV FLUSH PRN (12:15)
[2018-03-19] MEDS ORDERED: ONDANSETRON HCL 4 MG/2 ML VIAL IVP ONE (12:15)
[2018-03-19] MEDS ORDERED: RANITIDINE HCL SYRUP 150 MG/10 ML UDC PO ONE (12:15)
[2018-03-19 12:16] VITALS: O2SAT 100
[2018-03-19 12:17] VITALS: BP 142/91; PULSE 87; RESP 22; O2SAT 100
[2018-03-19 12:39] LABS: AUTOMATED NEUTROPHIL # 3.9 TH/MM3 (1.8-7.7); BASOPHIL % 0.4 % (0.0-2.0); EOSINOPHIL % 0.5 % (0.0-4.0); HEMATOCRIT 35.6 % (35.0-46.0); HEMOGLOBIN 12.5 GM/DL (11.6-15.3); LYMPH % 24.4 % (9.0-44.0); LYMPHOCYTE # 1.4 TH/MM3 (1.0-4.8); MEAN CELL VOLUME 81.3 FL (80.0-100.0); MEAN CORPUSCULAR HEMOGLOBIN 28.6 PG (27.0-34.0); MEAN CORPUSCULAR HGB CONC 35.2 % (32.0-36.0); MEAN PLATELET VOLUME 7.3 FL (7.0-11.0); MONO % 4.8 % (0.0-8.0); MONOCYTE # 0.3 TH/MM3 (0-0.9); NEUT % 69.9 % (16.0-70.0); PLATELET COUNT 209 TH/MM3 (150-450); RED BLOOD COUNT 4.38 MIL/MM3 (4.00-5.30); RED CELL DISTRIBUTION WIDTH 17.1 % (11.6-17.2); WHITE BLOOD COUNT 5.6 TH/MM3 (4.0-11.0)
[2018-03-19] MEDS ORDERED: METOCLOPRAMIDE HCL 10 MG/2 ML VIAL IV PUSH ONE (12:45)
[2018-03-19 13:01] LABS: ALBUMIN 3.9 GM/DL (3.4-5.0); ALT (GPT) 12 U/L (10-53); AST (GOT) 14 U/L (15-37); BICARBONATE 25.4 MEQ/L (21.0-32.0); BLOOD UREA NITROGEN 7 MG/DL (7-18); CALCIUM 8.8 MG/DL (8.5-10.1); CHLORIDE 107 MEQ/L (98-107); CREATININE 0.62 MG/DL (0.50-1.00); GLOMERULAR FILTRATION RATE 128 ML/MIN (>89); GLUCOSE,RANDOM 110 MG/DL (74-106); SODIUM (NA) 140 MEQ/L (136-145)
[2018-03-19 13:03] LABS: ALKALINE PHOSPHATASE 82 U/L (45-117); TOTAL BILIRUBIN ADULT 1.1 MG/DL (0.2-1.0); TOTAL PROTEIN 8.4 GM/DL (6.4-8.2)
[2018-03-19] MEDS ORDERED: OMEP40CA2 PO (13:25)
[2018-03-19] MEDS ORDERED: SUCR1S PO (13:25)
== END 2018-03-19 14:36 | disposition home or self-care (01) ==
LOC: NEPD 11:05
DX: K29.00 Acute gastritis without bleeding (principal); K21.9 Gastro-esophageal reflux disease without esophagitis; F17.210 Nicotine dependence, cigarettes, uncomplicated
CPT/HCPCS: 80053; 83690; 85025; 96361; 96374; 99284; J2765; J7030